=== PATIENT | male | born 1995 | race Caucasian/White ===

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

== ENCOUNTER 2017-02-07 21:29 | Emergency (ER) | payer OTHER ==
[~2017-02-07] VITALS: Ht 182.9 cm; Wt 77.1 kg
[~2017-02-07 21:29] MED LIST: AMOXICILLIN875 M1 PO
[2017-02-07 21:34] VITALS: BP 126/63
--- NOTE | 2017-02-07 22:18 | ED GENERAL ADULT ---
History of Present Illness General Chief Complaint: Foot or Ankle Injury Stated Complaint: RIGHT BIG TOE INFECTED PER PT Source: patient Exam Limitations: no limitations Vital Signs & Intake/Output Vital Signs & Intake/Output Vital Signs Date Time Temp Pulse Resp B/P B/P Pulse O2 O2 Flow FiO2 Mean Ox Delivery Rate 02/074 98.5 72 16 126/63 97 Room Air Allergies Coded Allergies: No Known Allergies (09/12/16) Reconcile Medications Amoxicillin 875 MG TABLET 1 TAB PO BID OTITIS MEDIA Cephalexin (Keflex) 500 MG CAPSULE 1 CAP PO TID PARONYCHIA Naproxen (Naprosyn) 500 MG TABLET 1 TAB PO BID PRN PAIN Triage Note: RECEIVED 30 YO MALE C/O " I THINK MY R GREAT TOE IS INFECTED". PT REPORTS R GREAT TOE PURPLE, DRAINING X ONE WEEK Triage Nurses Notes Reviewed? yes Onset: Gradual Duration: week(s): (1) Timing: remote history Injury Environment: home Severity: moderate Severity Numbers: 6 Modifying Factors: Improves With: immobilization. Worsens With: movement. HPI: Patient is a 22-year-old male presenting to the emergency department with chief complaint of right great toe pain, swelling and discharge of the finger and the past one week. He thinks he may have caught his toenail And Now Stating into the Skin. Remote History of Similar Symptoms. Denies Any Nausea or Vomiting Fevers Chills Chest Pain or Shortness of Breath. Pain Worse with Palpation. Has Been Doing Warm Soaks with Some Relief. Symptoms Currently Moderate. Denies Any Radiation of the Pain. (YURIY MARIE) Past History Travel History Traveled to [place] past 21 day No Medical History Any Pertinent Medical History? see below for history Neurological: NONE EENT: NONE Cardiovascular: NONE Respiratory: CHILDHOOD ASTHMA Gastrointestinal: NONE Hepatic: NONE Renal: NONE Musculoskeletal: NONE Psychiatric: NONE Endocrine: NONE Blood Disorders: NONE Cancer(s): NONE Tetanus Vaccine: Surgical History Surgical History: non-contributory Psychosocial History What is your primary language [place] Tobacco Use: Never used Family History Hx Contributory? No (YURIY MARIE) Review of Systems Review of Systems Constitutional: Reports: no symptoms. Comments Review of systems: See HPI, All other systems negative. Constitutional, no chills fever or weight loss HEENT: No visual changes no sore throat no congestion Cardiovascular: No chest pain ,palpitation Skin, no jaundice Respiratory: No dyspnea cough sputum or hemoptysis GI: No nausea no vomiting : No dysuria No hematuria Muscle skeletal: no back pain, no neck pain, Neurologic: No numbness Heme/endocrine: No bruising no bleeding no polyuria or polydipsia Immunology: up-to-date with immunizations (YURIY MARIE) Physical Exam Physical Exam General Appearance: well developed/nourished, no apparent distress, alert, awake , comfortable Comments: Well-developed well-nourished person in no acute distress HEENT: Pupils equally round and reactive to light and accommodation. Nose is atraumatic. Neck: Normal inspection Respiratory: No respiratory distress.speaking in clear sentences without difficulty. Extremity: . Pulses are 2+ bilaterally. No calf pain to palpation bilaterally. Capillary refill is intact in the nares bilaterally. Neuro: Alert oriented x3, motor sensory normal Skin: Mild edema and erythema noted along the medial aspect of the right great toenail, small amount of discharge present, moderately tender. Erythema is approximately 2-3 cm in length along the medial aspect of the right great toe. Psych: Mood and affect is normal, memory and judgment is normal. Core Measures ACS in differential dx? No CVA/TIA Diagnosis: No Severe Sepsis Present: No Septic Shock Present: No (YURIY MARIE) Progress Differential Diagnoses I considered the following diagnoses in my evaluation of the patient: Paronychia, cellulitis, ingrown toenail Plan of Care: Patient will be treated for paronychia, patient has been using topical antibiotics, will try oral antibiotics. Patient encouraged to do warm soaks. He'll follow-up with the podiatry if symptoms persist. Patient afebrile. No acute distress. All questions answered. He'll return for any worsening symptoms or concerns. Patient nontoxic. Initial ED EKG: none (YURIY MARIE) Departure Departure Time of Disposition: 2217 Disposition: HOME OR SELF CARE Condition: Stable Clinical Impression Primary Impression: Paronychia Qualifiers: Laterality: right Qualified Code: L03.011 - Cellulitis of right finger Referrals: DARCI BARTLETT,KHADAR OROSCO MD,ZACHARY Bernal (PCP/Family) Additional Instructions: Follow-up with podiatry call to make appointment. Warm soaks several times a day. Take antibiotics as prescribed. Continue applying topical Neosporin. Departure Forms: Customer Survey General Discharge Information Prescriptions: Current Visit Scripts Cephalexin (Keflex) 1 CAP PO TID #21 CAP Naproxen (Naprosyn) 1 TAB PO BID PRN PAIN #20 TAB (YURIY MARIE) PA/DOOR LINER Co-Sign Statement Statement: ED Attending supervision documentation- I saw and evaluated the patient. I have also reviewed all the pertinent lab results and diagnostic results. I agree with the findings and the plan of care as documented in the PA's/DOOR LINER's documentation. x I have reviewed the ED Record and agree with the PA's/DOOR LINER's documentation. [] Additions or exceptions (if any) to the PAs/DOOR LINER's note and plan are summarized below: [] (BRANDY ARCE,POP) Critical Care Note Critical Care Note Critical Care Time: non-applicable (YURIY MARIE)
[2017-02-07] MEDS ORDERED: KEFLEX500 M1 PO (22:20)
[2017-02-07] MEDS ORDERED: NAPROSYN500 M1 PO (22:20)
== END 2017-02-07 22:25 ==
LOC: ERH 21:29
DX: L03.031 Cellulitis of right toe (principal)